=== PATIENT | female | born 1935 | race Caucasian/White ===

== ENCOUNTER 2019-11-13 09:04 | Emergency (ER) | payer MEDICARE ==
[~2019-11-13] VITALS: Ht 162.6 cm; Wt 70.8 kg
[2019-11-13] MEDS ORDERED: DEXAMETHASONE SOD PHOS 10 MG/1 ML VIAL IM ONE (09:30)
[2019-11-13] MEDS ORDERED: HYDROCODONE/APAP 5MG-325MG TAB PO ONE (09:30)
--- NOTE | 2019-11-13 09:35 | Emergency Department Note ---
History of Present Illnes History of Present Illness Chief Complaint: Back Pain History of Present Illness This is a 84 year old female THURSDAY ONSET LOWER BACK PAIN DOWN LEFT LEG. 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 PT IS ABLE TO STAND AND WALK, BUT WITH PAIN. PT AAOX4. PLEASANT. PT STATES YESTERDAY SHE TRIED OTC PAIN PATCH. NOT HELPING. Historian: Patient, Family Member Arrival Mode: Car Exhaust Worker Required: No Onset (how long ago): day(s) (3) Location: LEFT LOWER BACK Quality: PAIN Radiation: Reports extremity (LEFT LEG TO KNEE) Severity: moderate Onset quality: gradual Timing of current episode: constant Chronicity: new Context: Denies recent illness Relieving factors: none Exacerbating factors: movement Associated symptoms: Reports denies other symptoms Treatments prior to arrival: none Past Medical/Family History Physician Review I have reviewed the patient's past medical and family history. Any updates have been documented here. Past Medical History Recent Fever: No Clinical Suspicion of Infectio: No New/Unexplained Change in Ment: No Past Medical History: Hypertension, Diabetes, Cancer, GERD Past Surgical History: Hysterectomy, Lumpectomy Social History Smoking Cessation: Never Smoker Counseling Performed: No Alcohol Use: None Any Illegal Drug Use: No Physically hurt or threatened: No Other Any Pre-Existing Lines (PICC,: No Review of Systems Review of Systems Constitutional: Reports no symptoms EENTM: Reports no symptoms Cardiovascular: Reports no symptoms Respiratory: Reports no symptoms Gastrointestinal: Reports no symptoms Genitourinary: Reports no symptoms Musculoskeletal: Reports as per HPI, Reports back pain Integumentary: Reports no symptoms Neurological: Reports no symptoms Psychological: Reports no symptoms Endocrine: Reports no symptoms Hematological/Lymphatic: Reports no symptoms Physical Exam Related Data Triage Vital Signs Vital Signs Date Time Temp Pulse Resp B/P (MAP) Pulse Ox O2 Delivery O2 Flow Rate FiO2 11/13/19 09:13 98.6 83 16 165/85 100 Room Air Vital signs reviewed: Yes Physical Exam CONSTITUTIONAL Constitutional: Present well-developed, Present well-nourished HENT HENT: Present normocephalic, Present atraumatic, Present oropharynx clear/moist, Present nose normal HENT L/R: Present left ext ear normal, Present right ext ear normal EYES Eyes: Reports PERRL, Reports conjunctivae normal NECK Neck: Present ROM normal PULMONARY Pulmonary: Present effort normal, Present breath sounds normal CARDIOVASCULAR Cardiovascular: Present regular rhythm, Present heart sounds normal, Present ca pillary refill normal, Present normal rate GASTROINTESTINAL Abdominal: Present soft, Present nontender, Present bowel sounds normal GENITOURINARY Genitourinary: Present exam deferred SKIN Skin: Present warm, Present dry MUSCULOSKELETAL Musculoskeletal: Present ROM normal, Present other (NEG SLR) NEUROLOGICAL Neurological: Present alert, Present oriented x 3, Present DTRs normal, Present no gross motor or sensory deficits; Absent cranial nerve deficit, Absent sensory deficit, Absent abnormal gait, Absent weakness PSYCHOLOGICAL Psychological: Present mood/affect normal, Present judgement normal Assessment & Plan Medical Decision Making MDM WILL GIVE PAIN MEDS, PT DOES NOT WANT TO BE IN ER LONG DUE TO COVID PANDEMIC, SAYS SHE WILL F/U WITH PCP TOMORROW Reassessment Reassessment DC HOME, TYL #3, F/U PCP TOMORROW, RTED PRN Assessment & Plan Final Impression: (1) Sciatica Depart Disposition: HOME, SELF-CARE Last Vital Signs Date Time Temp Pulse Resp B/P (MAP) Pulse Ox O2 Delivery O2 Flow Rate FiO2 11/13/19 09:13 98.6 83 16 165/85 100 Room Air Medications in the ED Acetaminophen/ Hydrocodone Bitart 1 ea ONCE ONCE PO ; Start 11/13/19 at 09:30; Stop 11/13/19 at 09:31; Status UNV Dexamethasone Sodium Phosphate 10 mg ONCE ONCE IM ; Start 11/13/19 at 09:30; Stop 11/13/19 at 09:31 DERREK GUTIERREZ MD Nov 13, 2019 09:35
[2019-11-13] MEDS ORDERED: HYDROCODONE/APAP 10MG-325MG TAB ONE (09:43)
== END 2019-11-13 10:36 | disposition home or self-care (01) ==
LOC: ER 09:08
DX: M54.42 Lumbago with sciatica, left side (principal); I10 Essential (primary) hypertension; E11.9 Type 2 diabetes mellitus without complications; K21.9 Gastro-esophageal reflux disease without esophagitis; Z85.89 Personal history of malignant neoplasm of other organs and systems
CPT/HCPCS: 99283